=== PATIENT | female | born 1980 | race Hispanic/Latino ===

== ENCOUNTER 2019-10-04 09:43 | Emergency (ER) | payer OTHER, SELFPAY ==
--- OUTSIDE RECORDS SUMMARY | 2019-10-04 09:46 | XMS REPORT ---
:1980 [facility] Address [address] [place] [address] Dr. Paris [address] [place] [id number] Care Team Providers Name Role Phone Unavailable Unavailable Unavailable Problems This patient has no known problems. Allergies, Adverse Reactions, Alerts This patient has no known allergies or adverse reactions. Medications This patient has no known medications.
[2019-10-04] MEDS ORDERED: NA CHLORIDE 0.9% 0 ML ONE (10:48)
[2019-10-04] MEDS ORDERED: PROMETHAZINE INJ 25 MG/ML AMP ONE ×3 (10:48→13:07)
[2019-10-04] MEDS ORDERED: NA CHLORIDE 0.9% 1,000 ML ONE (10:57)
[2019-10-04 11:06] LABS: Absolute Lymphocytes (CBC) 1.3 K/uL (0.7-4.9); Basophils % 0.3 % (0-1.3); MPV 9.2 fL (7.6-11.3)
[2019-10-04 11:19] LABS: Urine Blood 3+ (NEG); Urine Glucose NEGATIVE (NEG); Urine Protein 2+ (NEG)
[2019-10-04 11:39] LABS: BUN Blood Urea Nitrogen 8 mg/dL (7-18); Bicarbonate 25 mmol/L (21-32); Glucose Level 122 mg/dL (74-106); HCG, Quantitative 192218 mIU/mL (1-3); Potassium 3.7 mmol/L (3.5-5.1); Sodium Level 139 mmol/L (136-145)
--- NOTE | 2019-10-04 11:54 | RAD REPORT ---
EXAM DESCRIPTION: US - Abdomen Exam Limited - 10/04/2019 11:46 am CLINICAL HISTORY: ABD PAIN COMPARISON: No comparisons FINDINGS: The gallbladder demonstrates no gallstones. No pericholecystic fluid or gallbladder wall t hickening. The common bile duct is normal measuring 3 mm. The liver demonstrates no findings of intrahepatic biliary dilatation. IMPRESSION: Unremarkable examination.
--- NOTE | 2019-10-04 12:37 | RAD REPORT ---
EXAM DESCRIPTION: US - Transvaginal OB - 10/04/2019 12:28 pm CLINICAL HISTORY: ABD PAIN COMPARISON: OB FOLLOW UP dated 06/03/2008 FINDINGS: A single gestational sac is seen within the uterus. The shape of the sac is within normal limits for gestational age. Within the sac is a single pole with crown-rump length of 12 mm, co rrelating to estimated gestational age of 7 weeks 3 days. Estimated date of delivery is 05/19/2020. Heart rate is 162 BPM. The placenta is not yet developed due to early gestational age. The maternal adnexa and ovaries are within normal limits. Normal Doppler blood flow was demonstrated to both ovaries. IMPRESSION: Single live early intrauterine gestation with estimated gestational age of 7 weeks 3 day s, ZAY 05/19/2020. No unusual or unexpected finding.
--- NOTE | 2019-10-04 12:48 | ER ---
Nurse's Notes [facility] Name: Holly Velazquez Age: 39 yrs Sex: Female : 1980 Arrival Date: 10/04/2019 Time: 09:46 Bed 8 Private MD: Troy Elise B Diagnosis: Threatened Presentation: 10/03 09:57 Chief complaint: Patient states: + UPT yesterday. Pt reports this morning she began ss having vaginal bleeding this morning. Nausea/ vomiting x > 2 weeks. Coronavirus screen: Patient denies fever greater than 100.4F, cough, shortness of breath, or difficulty breathing. Proceed with normal triage process. Ebola Screen: Patient denies exposure to infectious person. Patient denies travel to an Ebola-affected area in the 21 days before illness onset. Initial Sepsis Screen: Does the patient meet any 2 criteria? No. Patient's initial sepsis screen is negative. Does the patient have a suspected source of infection? No. Patient's initial sepsis screen is negative. Risk Assessment: Do you want to hurt yourself or someone else? Patient reports no desire to harm self or others. 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 - Social history:: Smoking status: Patient denies any tobacco usage or history of. Screenin:05 Abuse screen: Denies threats or abuse. Denies injuries from another. Nutritional hb screening: No deficits noted. Tuberculosis screening: No symptoms or risk factors identified. Fall Risk None identified. Assessment: 10:15 General: Appears in no apparent distress. Behavior is calm, cooperative. Pain: Pain hb currently is 8 out of 10 on a pain scale. Neuro: Level of Consciousness is awake, alert, obeys commands, Oriented to person, place, time, situation. Cardiovascular: Capillary refill < 3 seconds Patient's skin is warm and dry. Respiratory: Airway is patent Respiratory effort is even, unlabored, Respiratory pattern is regular, symmetrical. GI: Reports cramping, nausea, vomiting. : Reports vaginal bleeding that is. EENT: No signs and/or symptoms were reported regarding the EENT system. Derm: Skin is pink, warm \\T\\ dry. Musculoskeletal: No signs and/or symptoms reported regarding the musculoskeletal system. 10:45 Reassessment: Patient is alert, oriented x 3, equal unlabored respirations, skin aa5 warm/dry/pink. Pt given warm blanket, lights dimmed for comfort. . 11:05 Reassessment: Patient appears in no apparent distress at this time. Patient and/or hb family updated on plan of care and expected duration. Pain level reassessed. Patient is alert, oriented x 3, equal unlabored respirations, skin warm/dry/pink. 11:50 Reassessment: Patient is alert, oriented x 3, equal unlabored respirations, skin aa5 warm/dry/pink. Pt reports nausea has decreased. Pt sitting up in bed. . Vital Signs: 09:57 BP 112 / 74; Pulse 90; Resp 18; Temp 99.1(TE); Pulse Ox 98% on R/A; Weight 49.9 kg; ss Height 4 ft. 11 in. (149.86 cm); Pain 8/10; 11:59 BP 128 / 74; Pulse 74; Resp 16; Temp 97.6(TE); Pulse Ox 100% on R/A; mh5 09:57 Body Mass Index 22.22 (49.90 kg, 149.86 cm) ED Course: 09:46 Patient arrived in ED. am2 09:47 Troy Elise MD is Private Physician. am2 09:59 Triage completed. ss 09:59 Arm band placed on right wrist. ss 10:05 Roselia Mcmillan RN is Primary Nurse. aa5 10:14 Cheryl Hendricks FNP-C is PHCP. snw 10:14 Vicente Bowden MD is Attending Physician. snw 10:52 Inserted saline lock: 20 gauge in right antecubital area, using aseptic technique. hb Blood collected. 11:05 Patient has correct armband on for positive identification. Bed in low position. Call hb light in reach. Side rails up X 1. 11:48 US Abdomen Limited In Process Unspecified. EDMS 11:48 US Transvaginal Ob In Process Unspecified. EDMS 12:48 Troy Elise MD is Referral Physician. snw 13:12 No provider procedures requiring assistance completed. IV discontinued, intact, hb bleeding controlled, No redness/swelling at site. Pressure dressing applied. Administered Medications: 10:58 Drug: NS 0.9% 1000 ml Route: IV; Rate: 1 bolus; Site: right antecubital; hb 11:50 Follow up: IV Status: Completed infusion; IV Intake: 1000ml aa5 10:58 Drug: Phenergan 6.25 mg Route: IVP; Site: right antecubital; hb 11:50 Follow up: Response: No adverse reaction hb 11:50 Drug: NS 0.9% 1000 ml Route: IV; Rate: 1 bolus; Site: right antecubital; aa5 13:12 Follow up: Response: No adverse reaction; IV Status: Completed infusion; IV Intake: hb 1000ml 13:07 Drug: Phenergan 25 mg Route: IM; Site: right deltoid; hb 13:12 Follow up: Response: Medication administered at discharge. hb Intake: 11:50 IV: 1000ml; Total: 1000ml. aa5 13:12 IV: 1000ml; Total: 2000ml. hb Outcome: 12:48 Discharge ordered by MD. snw 13:12 Discharged to home ambulatory, with significant other. hb 13:12 Condition: stable 13:12 Discharge instructions given to patient, significant other, Instructed on discharge instructions, follow up and referral plans. medication usage, Demonstrated understanding of instructions, follow-up care, medications, Prescriptions given X 1. 13:13 Patient left the ED. hb Signatures: Dispatcher [employer] EDAK Cheryl Hendricks, PASTE UP ARTIST-C PASTE UP ARTIST-Csnw Roselia Mcmillan RN RN aa5 Dyana Rapp RN RN ss Baxter, Heather, RN RN Ayah Coleman 5 Juliet Jack am2 Corrections: (The following items were deleted from the chart) 16:35 13:00 Reassessment: Patient is alert, oriented x 3, equal unlabored respirations, skin aa5 warm/dry/pink. Pt states "I just got diagnosed with diabetes and don't really know much about it and I just take my metformin whenever I feel like it". Diabetic education provided for patient and explained importance to take Metformin as prescribed, pt verbalized understanding. Pt states "thank you for explaining everything because I didn't understand before" . aa5 16:35 12:00 Reassessment: Pt resting in bed with eyes closed, respirations even and aa5 unlabored, skin is pink/warm/dry. . aa5
--- NOTE | 2019-10-04 12:48 | EDPHYS ---
Physician Documentation [facility] Name: Holly Velazquez Age: 39 yrs Sex: Female : 1980 Arrival Date: 10/04/2019 Time: 09:46 Bed 8 Private MD: Troy Elise B ED Physician Vicente Bowden HPI: 10/03 11:32 This 39 yrs old Female presents to ER via Ambulatory with complaints of snw Vaginal Bleeding, + Preg <12wks. 11:32 The patient presents with vaginal bleeding that is moderate, Pt states upper abd snw discomfort and nausea, vomiting for a couple of months. Did two tests yesterday and both were positive. Onset: The symptoms/episode began/occurred acutely. Associated signs and symptoms: Pertinent positives: abd pain and vomiting. Severity of symptoms: At their worst the symptoms were moderate. The patient's method of control includes pt was on depo until the first of this year. The patient has not experienced similar symptoms in the past, pt did have tubal 3 pregnancies ago. 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 - Social history:: Smoking status: Patient denies any tobacco usage or history of. ROS: 11:05 Constitutional: Negative for fever, chills, and weight loss, Eyes: Negative for injury, snw pain, redness, and discharge, ENT: Negative for injury, pain, and discharge, Neck: Negative for injury, pain, and swelling, Cardiovascular: Negative for chest pain, palpitations, and edema, Respiratory: Negative for shortness of breath, cough, wheezing, and pleuritic chest pain, Back: Negative for injury and pain, : Negative for injury, discharge, and swelling, + vaginal bleeding and MS/Extremity: Negative for injury and deformity, Skin: Negative for injury, rash, and discoloration, Neuro: Negative for headache, weakness, numbness, tingling, and seizure. 11:05 Abdomen/GI: Positive for abdominal pain, nausea and vomiting. Exam: 11:04 Constitutional: This is a well developed, well nourished patient who is awake, alert, snw and in no acute distress. Head/Face: Normocephalic, atraumatic. Eyes: Pupils equal round and reactive to light, extra-ocular motions intact. Lids and lashes normal. Conjunctiva and sclera are non-icteric and not injected. Cornea within normal limits. Periorbital areas with no swelling, redness, or edema. ENT: Nares patent. No nasal discharge, no septal abnormalities noted. Tympanic membranes are normal and external auditory canals are clear. Oropharynx with no redness, swelling, or masses, exudates, or evidence of obstruction, uvula midline. Mucous membranes moist. Neck: Trachea midline, no thyromegaly or masses palpated, and no cervical lymphadenopathy. Supple, full range of motion without nuchal rigidity, or vertebral point tenderness. No Meningismus. Chest/axilla: Normal chest wall appearance and motion. Nontender with no deformity. No lesions are appreciated. Cardiovascular: Regular rate and rhythm with a normal S1 and S2. No gallops, murmurs, or rubs. Normal PMI, no JVD. No pulse deficits. Respiratory: Lungs have equal breath sounds bilaterally, clear to auscultation and percussion. No rales, rhonchi or wheezes noted. No increased work of breathing, no retractions or nasal flaring. Back: No spinal tenderness. No costovertebral tenderness. Full range of motion. Skin: Warm, dry with normal turgor. Normal color with no rashes, no lesions, and no evidence of cellulitis. MS/ Extremity: Pulses equal, no cyanosis. Neurovascular intact. Full, normal range of motion. Neuro: Awake and alert, GCS 15, oriented to person, place, time, and situation. Cranial nerves II-XII grossly intact. Motor strength 5/5 in all extremities. Sensory grossly intact. Cerebellar exam normal. Normal gait. Psych: Awake, alert, with orientation to person, place and time. Behavior, mood, and affect are within normal limits. 11:04 Abdomen/GI: Inspection: abdomen appears normal, Bowel sounds: normal, in all quadrants, Palpation: moderate abdominal tenderness, in the right upper quadrant and left upper quadrant. Vital Signs: 09:57 BP 112 / 74; Pulse 90; Resp 18; Temp 99.1(TE); Pulse Ox 98% on R/A; Weight 49.9 kg; ss Height 4 ft. 11 in. (149.86 cm); Pain 8/10; 11:59 BP 128 / 74; Pulse 74; Resp 16; Temp 97.6(TE); Pulse Ox 100% on R/A; mh5 09:57 Body Mass Index 22.22 (49.90 kg, 149.86 cm) ss MDM: 10:14 Patient medically screened. snw 12:50 Data reviewed: vital signs, nurses notes. Data interpreted: Pulse oximetry: on room air snw is 100 %. Interpretation: normal. 10/03 10:39 Order name: Quantitative Hcg; Complete Time: 11:41 snw 10/03 10:39 Order name: Abo/rh Typing; Complete Time: 11:48 snw 10/03 10:39 Order name: Basic Metabolic Panel; Complete Time: 11:41 snw 10/03 10:39 Order name: CBC with Diff; Complete Time: 11:41 snw 10/03 10:50 Order name: Urine Dipstick--Ancillary (enter results); Complete Time: 11:41 eb 10/03 10:50 Order name: Urine --Ancillary (enter results); Complete Time: 11:41 eb 10/03 10:39 Order name: Urine Test (obtain specimen); Complete Time: 10:58 snw 10/03 10:39 Order name: IV Saline Lock; Complete Time: 10:58 snw 10/03 10:39 Order name: US Abdomen Limited; Complete Time: 11:58 snw 10/03 11:05 Order name: US Transvaginal Ob; Complete Time: 12:46 snw 10/03 10:39 Order name: Labs collected and sent; Complete Time: 10:58 snw 10/03 10:39 Order name: NPO; Complete Time: 10:58 snw 10/03 10:39 Order name: Urine Dipstick-Ancillary (obtain specimen); Complete Time: 10:58 snw Administered Medications: 10:58 Drug: NS 0.9% 1000 ml Route: IV; Rate: 1 bolus; Site: right antecubital; hb 11:50 Follow up: IV Status: Completed infusion; IV Intake: 1000ml aa5 10:58 Drug: Phenergan 6.25 mg Route: IVP; Site: right antecubital; hb 11:50 Follow up: Response: No adverse reaction hb 11:50 Drug: NS 0.9% 1000 ml Route: IV; Rate: 1 bolus; Site: right antecubital; aa5 13:12 Follow up: Response: No adverse reaction; IV Status: Completed infusion; IV Intake: hb 1000ml 13:07 Drug: Phenergan 25 mg Route: IM; Site: right deltoid; hb 13:12 Follow up: Response: Medication administered at discharge. hb Disposition: 18:42 Co-signature as Attending Physician, Vicente Bowden MD I agree with the assessment and kdr plan of care. Disposition: 10/04/19 12:48 Discharged to Home. Impression: Threatened . - Condition is Stable. - Discharge Instructions: Threatened Miscarriage, Vaginal Bleeding During , First Trimester, First Trimester of , Pelvic Rest. - Prescriptions for Vitamin 27- 0.8 mg Oral Tablet - take 1 tablet by ORAL route once daily; 60 tablet. - Medication Reconciliation Form, Thank You Letter, Antibiotic Education, Prescription Opioid Use form. - Follow up: Emergency Department; When: As needed; Reason: Worsening of condition. Follow up: Troy Elise MD; When: 2 - 3 days; Reason: Recheck today's complaints, Continuance of care, Re-evaluation by your physician. Signatures: Dispatcher [employer] EDMS Vicente Bowden MD MD [facility] Cheryl Hendricks, FINE ARTS PACKER-C FINE ARTS PACKER-Jostinw Roselia Mcmillan RN RN aa5 Dyana Rapp RN RN Siomara Queen, KIANA RN Corrections: (The following items were deleted from the chart) 13:13 12:48 10/04/2019 12:48 Discharged to Home. Impression: Threatened . Condition hb is Stable. Forms are Medication Reconciliation Form, Thank You Letter, Antibiotic Education, Prescription Opioid Use. Follow up: Emergency Department; When: As needed; Reason: Worsening of condition. Follow up: Troy Elise; When: 2 - 3 days; Reason: Recheck today's complaints, Continuance of care, Re-evaluation by your physician. snw
[2019-10-04 13:28] VITALS: BP 128/74; TEMP 97.6; O2SAT 100
== END 2019-10-04 13:13 | disposition home or self-care (01) ==
LOC: ER 09:43
DX: O20.0 Threatened abortion (principal); O99.341 Other mental disorders complicating pregnancy, first trimester; F41.9 Anxiety disorder, unspecified; Z3A.00 Weeks of gestation of pregnancy not specified
CPT/HCPCS: 36415; 76705; 76817; 80048; 81003; 81025; 84702; 85025; 86900; 86901; 96361; 96372; 96374; 99284; J2550; J7030

== ENCOUNTER 2019-10-31 14:24 | Emergency (ER) | payer OTHER ==
--- OUTSIDE RECORDS SUMMARY | 2019-10-31 14:33 | XMS REPORT ---
:1980 Author Organization [facility] t Address [address] [place] [address] Dr. Paris [address] [place] [id number] Care Team Providers Name Role Phone Unavailable Unavailable Unavailable Problems This patient has no known problems. Allergies, Adverse Reactions, Alerts This patient has no known allergies or adverse reactions. Medications This patient has no known medications.
[2019-10-31] MEDS ORDERED: ONDANSETRON 4 MG/2 ML VIAL ONE (15:05)
[2019-10-31] MEDS ORDERED: NA CHLORIDE 0.9% 1,000 ML ONE (15:05)
[2019-10-31 15:11] LABS: Absolute Lymphocytes (CBC) 2.1 K/uL (0.7-4.9); Basophils % 0.4 % (0-1.3); Hematocrit 34.5 % (36.0-45.0); Lymphocytes % 12.7 % (15.3-44.8); MPV 9.3 fL (7.6-11.3); RBC Red Blood Cell Count 4.04 M/uL (3.86-4.86)
[2019-10-31 15:21] LABS: Urine Blood NEGATIVE (NEG); Urine Glucose NEGATIVE (NEG); Urine Protein 1+ (NEG); Urine Specific Gravity >1.030 (1.005-1.030); Urine pH 6.5 (5.0-7.0)
[2019-10-31 15:31] LABS: Urine Amorphous Sediment 1+ /HPF (NONE SEEN); Urine Bacteria >50 /HPF (<20); Urine Culture Reflex Order REFLEXED; Urine Mucus 1+ /HPF (NONE SEEN); Urine RBC <5 /HPF (NONE SEEN)
[2019-10-31 15:48] LABS: ALT/SGPT 25 U/L (12-78); AST/SGOT 14 U/L (15-37); Albumin 3.7 g/dL (3.4-5.0); Alkaline Phosphatase 59 U/L (45-117); BUN Blood Urea Nitrogen 8 mg/dL (7-18); Bicarbonate 25 mmol/L (21-32); Bilirubin Direct 0.1 mg/dL (0-0.2); Bilirubin Total 0.3 mg/dL (0.2-1.0); Glucose Level 105 mg/dL (74-106); HCG, Quantitative 158857 mIU/mL (1-3); Lipase 86 U/L (73-393); Potassium 3.6 mmol/L (3.5-5.1); Protein, Total 7.9 g/dL (6.4-8.2); Sodium Level 137 mmol/L (136-145)
--- NOTE | 2019-10-31 16:42 | EDPHYS ---
Physician Documentation [facility] Name: Holly Velazquez Age: 39 yrs Sex: Female : 1980 Arrival Date: 10/31/2019 Time: 14:26 Bed 6 Private MD: Troy Elise B ED Physician Vicente Bowden HPI: 10/30 14:50 This 39 yrs old Female presents to ER via Ambulatory with complaints of jr8 Nausea/Vomiting/Diarrhea, Abdominal Pain. 14:50 The patient presents to the emergency department with nausea, vomiting, diarrhea. jr8 Onset: The symptoms/episode began/occurred acutely, yesterday. Possible causes: unknown. The symptoms are aggravated by nothing. The symptoms are alleviated by nothing. Associated signs and symptoms: The patient has no apparent associated signs or symptoms. Severity of symptoms: At their worst the symptoms were moderate in the emergency department the symptoms are unchanged. The patient has not experienced similar symptoms in the past. The patient has not recently seen a physician. Stated that she is 11 weeks . Denies discharge, bleeding, or lower abdominal pain. Stated that it is mid abdominal pain with n/v/d and chills . 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 - Social history:: Smoking status: Patient denies any tobacco usage or history of. ROS: 14:50 Eyes: Negative for injury, pain, redness, and discharge, ENT: Negative for injury, jr8 pain, and discharge, Neck: Negative for injury, pain, and swelling, Cardiovascular: Negative for chest pain, palpitations, and edema, Respiratory: Negative for shortness of breath, cough, wheezing, and pleuritic chest pain, Back: Negative for injury and pain, MS/Extremity: Negative for injury and deformity, Skin: Negative for injury, rash, and discoloration, Neuro: Negative for headache, weakness, numbness, tingling, and seizure. 14:50 Abdomen/GI: Positive for abdominal pain, nausea, vomiting, and diarrhea, abdominal cramps, Negative for abdominal distension, hematemesis, black/tarry stool, rectal pain, rectal bleeding, bowel incontinence, flatulence. 14:50 : Negative for urinary symptoms, pelvic pain, flank pain, burning with urination. Exam: 14:50 Eyes: Pupils equal round and reactive to light, extra-ocular motions intact. Lids and jr8 lashes normal. Conjunctiva and sclera are non-icteric and not injected. Cornea within normal limits. Periorbital areas with no swelling, redness, or edema. ENT: Nares patent. No nasal discharge, no septal abnormalities noted. Tympanic membranes are normal and external auditory canals are clear. Oropharynx with no redness, swelling, or masses, exudates, or evidence of obstruction, uvula midline. Mucous membranes moist. Neck: Trachea midline, no thyromegaly or masses palpated, and no cervical lymphadenopathy. Supple, full range of motion without nuchal rigidity, or vertebral point tenderness. No Meningismus. Cardiovascular: Regular rate and rhythm with a normal S1 and S2. No gallops, murmurs, or rubs. Normal PMI, no JVD. No pulse deficits. Respiratory: Lungs have equal breath sounds bilaterally, clear to auscultation and percussion. No rales, rhonchi or wheezes noted. No increased work of breathing, no retractions or nasal flaring. Back: No spinal tenderness. No costovertebral tenderness. Full range of motion. Skin: Warm, dry with normal turgor. Normal color with no rashes, no lesions, and no evidence of cellulitis. MS/ Extremity: Pulses equal, no cyanosis. Neurovascular intact. Full, normal range of motion. Neuro: Awake and alert, GCS 15, oriented to person, place, time, and situation. Cranial nerves II-XII grossly intact. Motor strength 5/5 in all extremities. Sensory grossly intact. Cerebellar exam normal. Normal gait. 14:50 Abdomen/GI: Inspection: abdomen appears normal, Bowel sounds: active, all quadrants, Palpation: soft, in all quadrants, mild abdominal tenderness, in the mid upper abdominal pain, mass, is not appreciated, rebound tenderness, is not appreciated, voluntary guarding, is not appreciated, involuntary guarding, is not appreciated, no appreciated organomegaly, Indicators: McBurney's point is not tender, Mims's sign is negative, Rovsing's sign is negative, Liver: tenderness, is not appreciated. Vital Signs: 14:38 BP 112 / 87; Pulse 114; Resp 19 S; Temp 98.6(O); Pulse Ox 99% on R/A; Pain 8/10; ca1 14:44 Weight 52.16 kg (R); Height 4 ft. 11 in. (149.86 cm) (R); ca1 15:49 BP 119 / 76; Pulse 67; Resp 17 S; Pulse Ox 100% on R/A; ca1 16:37 BP 106 / 83; Pulse 75; Resp 17 S; Pulse Ox 100% on R/A; ca1 14:44 Body Mass Index 23.23 (52.16 kg, 149.86 cm) ca1 MDM: 14:42 Patient medically screened. jr8 16:39 Data reviewed: vital signs, nurses notes, lab test result(s), and as a result, I will jr8 discharge patient. Data interpreted: Pulse oximetry: on room air is 100 %. Interpretation: normal. Counseling: I had a detailed discussion with the patient and/or guardian regarding: the historical points, exam findings, and any diagnostic results supporting the discharge/admit diagnosis, lab results, the need for outpatient follow up, a family practitioner, to return to the emergency department if symptoms worsen or persist or if there are any questions or concerns that arise at home. ED course: Patient feeling better. Most likely gastroenteritis. Mild pain upper mid abdomen. No lower abdominal tenderness upon initial assessment or reassessment. No fevers. Strong HCG count with no pelvic pain, discharge or bleeding. Unlikely to be related. Explained to her that she needs to f/u with OB and PCP. If worse to come back. Patient good with this. . 10/30 14:43 Order name: Basic Metabolic Panel; Complete Time: 15:58 10/30 14:43 Order name: CBC with Diff; Complete Time: 15:34 10/30 14:43 Order name: Creatinine for Radiology; Complete Time: 15:34 10/30 14:43 Order name: Hepatic Function; Complete Time: 15:58 10/30 14:43 Order name: Lipase; Complete Time: 15:58 10/30 14:43 Order name: Urine Microscopic Only; Complete Time: 15:34 8 10/30 14:43 Order name: IV Saline Lock; Complete Time: 14:59 10/30 14:43 Order name: Labs collected and sent; Complete Time: 14:59 8 10/30 14:43 Order name: HCG-Quantitative; Complete Time: 15:58 8 10/30 15:13 Order name: Urine Dipstick--Ancillary (enter results); Complete Time: 15:34 em1 10/30 15:13 Order name: Urine --Ancillary (enter results); Complete Time: 15:34 em1 10/30 15:32 Order name: Urine Culture [facility] 10/30 14:43 Order name: Urine Test (obtain specimen); Complete Time: 14:59 [facility] 10/30 14:43 Order name: Urine Dipstick-Ancillary (obtain specimen); Complete Time: 14:59 Administered Medications: 15:00 Drug: NS 0.9% 1000 ml Route: IV; Rate: 1000 ml; Site: right antecubital; ca1 15:50 Follow up: Response: No adverse reaction; IV Status: Completed infusion ca1 15:04 Drug: Zofran (Ondansetron) 4 mg Route: IVP; Site: right antecubital; ca1 15:50 Follow up: Response: No adverse reaction; Nausea is decreased ca1 Disposition: 18:36 Co-signature as Attending Physician, Vicente Bowden MD I agree with the assessment and kdr plan of care. Disposition: 10/31/19 16:41 Discharged to Home. Impression: Acute Gastroenteritis. - Condition is Stable. - Discharge Instructions: Viral Gastroenteritis, Adult. - Prescriptions for Bentyl 20 mg Oral Tablet - take 1 tablet by ORAL route every 6 hours As needed; 20 tablet. Zofran 8 mg Oral Tablet - take 1 tablet by ORAL route every 12 hours As needed; 20 tablet. - Medication Reconciliation Form, Thank You Letter, Antibiotic Education, Prescription Opioid Use form. - Follow up: Troy Elise MD; When: 5 - 6 days; Reason: Recheck today's complaints, Continuance of care, Re-evaluation by your physician. - Problem is new. - Symptoms have improved. Signatures: Dispatcher [employer] [facility] Vicente Bowden MD MD kdr Roszak, Josh, PA PA jr8 Inge Sexton RN RN ca1 Corrections: (The following items were deleted from the chart) 16:56 16:41 10/31/2019 16:41 Discharged to Home. Impression: Acute Gastroenteritis. Condition ca1 is Stable. Forms are Medication Reconciliation Form, Thank You Letter, Antibiotic Education, Prescription Opioid Use. Follow up: Troy Elise; When: 5 - 6 days; Reason: Recheck today's complaints, Continuance of care, Re-evaluation by your physician. Problem is new. Symptoms have improved. jr8
--- NOTE | 2019-10-31 16:42 | ER ---
Nurse's Notes [facility] Name: Holly Velazquez Age: 39 yrs Sex: Female : 1980 Arrival Date: 10/31/2019 Time: 14:26 Bed 6 Private MD: Troy Elise B Diagnosis: Acute Gastroenteritis Presentation: 10/30 14:38 Chief complaint: Patient states: 11-12 WKS . Chills all night last night, dry ca1 heaving every 2 hrs, diarrhea at 0300, vomiting at 0700. Low grade fever at 99.1F. Abdominal pain on the epigastric region, reports spotting but not bleeding like before when first visited the ER. Coronavirus screen: Proceed with normal triage. Patient denies a cough. Patient denies shortness of breath or difficulty breathing. Patient denies measured and/or subjective temperature greater than 100.4F prior to today's visit. Patient denies travel on a cruise ship or to a country the [facility] currently lists as an affected area. Patient denies contact with known and/or suspected case of COVID-19. Ebola Screen: Patient negative for fever greater than or equal to 101.5 degrees Fahrenheit, and additional compatible Ebola Virus Disease symptoms Patient denies exposure to infectious person. Patient denies travel to an Ebola-affected area in the 21 days before illness onset. No symptoms or risks identified at this time. Initial Sepsis Screen: Does the patient meet any 2 criteria? No. Patient's initial sepsis screen is negative. Does the patient have a suspected source of infection? No. Patient's initial sepsis screen is negative. Risk Assessment: Do you want to hurt yourself or someone else? Patient reports no desire to harm self or others. Onset of symptoms was October 31, 2019. 14:38 Method Of Arrival: Ambulatory ca1 14:38 Acuity: EVELIA 3 ca1 14:41 Care prior to arrival: Medication(s) given: Phenergan, at 1100. 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 - Social history:: Smoking status: Patient denies any tobacco usage or history of. Screenin:42 Abuse screen: Denies threats or abuse. Denies injuries from another. Nutritional ca1 screening: No deficits noted. Tuberculosis screening: No symptoms or risk factors identified. Fall Risk IV access (20 points). Assessment: 14:42 General: Appears in no apparent distress. comfortable, Behavior is calm, cooperative, ca1 anxious. Pain: Complains of pain in epigastric area Pain currently is 8 out of 10 on a pain scale. Neuro: Level of Consciousness is awake, alert, obeys commands, Oriented to person, place, time, situation. Cardiovascular: Heart tones S1 S2 present Capillary refill < 3 seconds Patient's skin is warm and dry. Respiratory: Airway is patent Respiratory effort is even, unlabored, Respiratory pattern is regular, symmetrical, Breath sounds are clear bilaterally. GI: Abdomen is round non-distended, Bowel sounds present X 4 quads. Abd is soft X 4 quads Abdomen is tender to palpation in epigastric area Reports diarrhea, nausea, vomiting. : No signs and/or symptoms were reported regarding the genitourinary system. EENT: No signs and/or symptoms were reported regarding the EENT system. Derm: Skin is intact, is healthy with good turgor, Skin is pink, warm \T\ dry. Musculoskeletal: Circulation, motion, and sensation intact. Capillary refill < 3 seconds. 15:49 Reassessment: Patient appears in no apparent distress at this time. Patient and/or ca1 family updated on plan of care and expected duration. Pain level reassessed. Patient is alert, oriented x 3, equal unlabored respirations, skin warm/dry/pink. 16:37 Reassessment: Patient appears in no apparent distress at this time. Patient and/or ca1 family updated on plan of care and expected duration. Pain level reassessed. Patient is alert, oriented x 3, equal unlabored respirations, skin warm/dry/pink. Vital Signs: 14:38 BP 112 / 87; Pulse 114; Resp 19 S; Temp 98.6(O); Pulse Ox 99% on R/A; Pain 8/10; ca1 14:44 Weight 52.16 kg (R); Height 4 ft. 11 in. (149.86 cm) (R); ca1 15:49 BP 119 / 76; Pulse 67; Resp 17 S; Pulse Ox 100% on R/A; ca1 16:37 BP 106 / 83; Pulse 75; Resp 17 S; Pulse Ox 100% on R/A; ca1 14:44 Body Mass Index 23.23 (52.16 kg, 149.86 cm) ca1 ED Course: 14:26 Patient arrived in ED. ag5 14:27 Troy Elise MD is Private Physician. ag5 14:30 Elvis Booker PA is PHCP. jr8 14:30 Vicente Bowden MD is Attending Physician. jr8 14:38 Inge Sexton RN is Primary Nurse. ca1 14:41 Triage completed. ca1 14:42 Arm band placed on right wrist. ca1 14:42 Patient has correct armband on for positive identification. Placed in gown. Bed in low ca1 position. Call light in reach. Side rails up X 1. Pulse ox on. NIBP on. Warm blanket given. 14:58 No provider procedures requiring assistance completed. Inserted saline lock: 20 gauge ca1 in right antecubital area, using aseptic technique. Blood collected. 16:41 Troy Elise MD is Referral Physician. jr8 16:56 IV discontinued, intact, bleeding controlled, No redness/swelling at site. Pressure ca1 dressing applied. Administered Medications: 15:00 Drug: NS 0.9% 1000 ml Route: IV; Rate: 1000 ml; Site: right antecubital; ca1 15:50 Follow up: Response: No adverse reaction; IV Status: Completed infusion ca1 15:04 Drug: Zofran (Ondansetron) 4 mg Route: IVP; Site: right antecubital; ca1 15:50 Follow up: Response: No adverse reaction; Nausea is decreased ca1 Outcome: 16:41 Discharge ordered by . jr8 16:56 Discharged to home ambulatory. ca1 16:56 Condition: stable 16:56 Discharge instructions given to patient, Instructed on discharge instructions, follow up and referral plans. medication usage, Demonstrated understanding of instructions, follow-up care, medications, Prescriptions given X 2. 16:56 Patient left the ED. ca1 Signatures: Elvis Booker PA PA jr8 Inge Sexton RN RN ca1 Taniya Rahman ag5 Corrections: (The following items were deleted from the chart) 14:42 14:41 Care prior to arrival: Medication(s) given: Phenergan, ca1 ca1
[2019-10-31 17:04] VITALS: TEMP 98.6
[2019-10-31 17:05] VITALS: O2SAT 100
[2019-10-31 17:06] VITALS: BP 106/83
== END 2019-10-31 16:56 | disposition home or self-care (01) ==
LOC: ER 14:24
DX: O99.611 Diseases of the digestive system complicating pregnancy, first trimester (principal); O99.341 Other mental disorders complicating pregnancy, first trimester; F41.9 Anxiety disorder, unspecified; Z3A.11 11 weeks gestation of pregnancy
CPT/HCPCS: 96361; 87088; 85025; 87086; 80048; 36415; 81025; 80076; 84702; 83690; 96374; 99284; J7030; J2405; 81003; 81015